=== PATIENT | male | born 1965 | race Caucasian/White ===

== ENCOUNTER 2018-05-31 02:35 | Emergency (ER) | payer OTHER ==
[2018-05-31] MEDS ORDERED: FLUORESCEIN SODIUM 1 MG STRIP OP ONE (02:54)
[2018-05-31] MEDS ORDERED: PROPARACAINE 0.5% 15 ML OPHT DROP OP ONE (02:54)
--- NOTE | 2018-05-31 03:20 | EDPHY ---
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 He states tonight he developed some bilateral eye pain however were side of his left eye than right. The pain got severe tonight and progressively worse throughout the night and had tearing. He is unsure if he injured his eyes from welding without protection. He denies any foreign body or anything getting into his eyes. Bright lights do hurt. Past Medical History: Denies significant medical history Past Surgical History: Denies significant surgical history Social History: Denies drugs alcohol tobacco. Family History: Noncontributory ROS REVIEW OF SYSTEMS: 10 Systems were reviewed and negative with the exception of the elements mentioned in the history of present illness. Exam Constitutional triage nursing summary reviewed, vital signs reviewed, awake/ alert. Eyes pupils are equal round react to light, normal combination, extraocular movements intact, no proptosis, globes are soft, anterior chambers normal, right eye he is blind out of, left thigh complains of pain with blurry vision. The conjunctiva both eyes are injected. Visual singleton reviewed. Limited out of the right eye, however able to see out of his left eye with normal visual singleton. Visual acuity reviewed HENT normal inspection, atraumatic, moist mucus membranes, no epistaxis, neck supple/ no meningismus, no raccoon eyes. Respiratory clear to auscultation bilaterally, normal breath sounds, no respiratory distress, no wheezing. Cardiovascular rate normal, regular rhythm, no murmur, no edema, distal pulses normal. Gastrointestinal soft, non-tender, no rebound, no guarding, normal bowel sounds, no distension, no pulsatile mass. Genitourinary no CVA tenderness. Musculoskeletal no midline vertebral tenderness, full range of motion, no calf swelling, no tenderness of extremities, no meningismus, good pulses, neurovascularly intact. Skin pink, warm, & dry, no rash, skin atraumatic. Neurologic awake, alert and oriented x 3, AAOx3, moves all 4 extremities equally, motor intact, sensory intact, CN II-XII intact, normal cerebellar, normal vision, normal speech. Psychiatric normal mood/affect. Heme/Lymph/Immune no lymphadenopathy. Differential Diagnosis: Includes but is not limited to in a particular order: Arc eye, welding eye, photosensitivity, iritis, uveitis, foreign body Medical Decision Making: Plan for this patient full eye exam. Check visual acuity. Will apply proparacaine to see if this gives him pain relief, will check for foreign bodies. Re-evaluation: Proparacaine was applied to both eyes and gave him great pain relief. His pain is pretty much resolved after proparacaine applied. Wood's lamp was applied with floor seen, I am unable to see scratch, or corneal abrasion or foreign bodies visualized. I will consult Ophthalmology. I spoke with Ophthalmology 344 a.m. They recommend prednisolone eyedrops. And close follow-up this morning. They be glad to see the patient in the office. I have discussed this at length with the patient. He understands he needs to follow up closely with Ophthalmology. He should see them this morning. Call their 1st thing in the morning. 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, collar bone fx multiple times, and femur fx - Social History Smoking Status: Never smoked Constitutional: Initial Vital Signs Temperature (C) 36.6 C 05/31/18 02:40 Heart Rate 88 05/31/18 02:40 Respiratory Rate 16 05/31/18 02:40 Blood Pressure 144/82 H 05/31/18 02:40 O2 Sat (%) 98 05/31/18 02:40 O2 Delivery Mode Room Air Allergies/Adverse Reactions: bee venom protein (honey bee) Allergy (Verified 05/31/18 02:44) Home Medications: Medication Instructions Recorded NK [No Known Home Meds] 05/31/18 Medical Decision Making - Data Points Medications Given: Discontinued Medications Fluorescein Sodium (Bioglo) 1 mg OP EDNOW ONE Stop: 05/31/18 02:55 Last Admin: 05/31/18 02:59 Dose: Not Given Proparacaine HCl (Alcaine 0.5%) 1 drops OP EDNOW ONE Stop: 05/31/18 02:55 Last Admin: 05/31/18 03:00 Dose: Not Given Departure - Departure Disposition: Home, Routine, Self-Care Clinical Impression: Exposure to welding arc Qualifiers: Encounter type: initial encounter Qualified Code(s): W89.0XXA - Exposure to welding light (arc), initial encounter Condition: Good Instructions: Blurred Vision (ED), Eye Pain (ED) Additional Instructions: 1. Do not rub your eye. 2. Cool compresses 3. Recommend anti-inflammatory pain medicine like Tylenol and/or Motrin 4. You need to follow up with the eye doctor today. Referrals: NONE *PRIMARY CARE P,. [Primary Care Provider] - As per Instructions Chance Hutson MD [Medical Doctor] - As per Instructions
[2018-05-31] MEDS ORDERED: prednisoLONE ACET 1% 5 ML OPHT.BTL OP ONE (03:45)
[2018-05-31 04:06] VITALS: BP 142/75
== END 2018-05-31 04:07 | disposition home or self-care (01) ==
DX: S05.91XA Unspecified injury of right eye and orbit, initial encounter (principal); S05.92XA Unspecified injury of left eye and orbit, initial encounter; W89.0XXA Exposure to welding light (arc), initial encounter; Y99.0 Civilian activity done for income or pay